=== PATIENT | female | born 1960 | race Caucasian/White ===

== ENCOUNTER 2019-10-30 08:07 | Outpatient (CLI) | payer OTHER, SELFPAY ==
--- NOTE | ~2019-10-30 | DEXA_ITS ---
Bone Density Report Name: Etelvina Gilmore Age: 59 Sex: Female Ethnicity: White Date of : 1960 Indication: postmenopausal; prior fracture; Referring Provider: ANGY RIVAS Study: Bone densitometry was performed. Exam Date: October 30, 2019 Accession number: [id number] Bone Density: Region BMD T-score Z-score Classification AP Spine (L1-L4) 0.832 -2.0 -0.7 Osteopenia Femoral Neck (Left) 0.647 -1.8 -0.6 Osteopenia Total Hip (Left) 0.779 -1.3 -0.5 Osteopenia Total Hip Bilateral Avg 0.774 -1.4 -0.6 Osteopenia Femoral Neck (Right) 0.622 -2.0 -0.9 Osteopenia Total Hip (Right) 0.768 -1.4 -0.6 Osteopenia World Health Organization criteria for BMD impression classify patients as: Normal (T-score at or above -1.0), Osteopenia (T-score between -1.0 and -2.5), or Osteoporosis (T-score at or below -2.5). 10-year Fracture Risk(1): Major Osteoporotic Fracture 15% Hip Fracture 2.0% Reported Risk Factors: [place] (), Neck BMD=0.622, BMI=29.7, previous fracture (1) FRAX(R) Version 3.08. Fracture probability calculated for an untreated patient. Fracture probability may be lower if the patient has received treatment. Clinical Information Provided by Patient: Has had a low trauma fracture Has used the following medications: Vitamin D, Calcium Patient maximum height was 61 Menopause Age: 53 Drinks caffeinated beverages Onset of menses at age 13 Number of children 2 Impression: The patient has low bone mass, based on the Total Spine T-score. The patient has an estimated ten-year risk of hip fracture of 2% and an estimated ten-year risk of major fracture of 15%, based on the WHO FRAX algorithm. The patient has risk factors, including: previous fracture. Discussion: BONE DENSITY IS LOW AT ONE OR MORE SKELETAL SITES. This patient's lowest T-score is low at one or more skeletal sites. It meets the World Health Organization's (WHO) criteria for ?low bone mass? (T-score between -1.0 and -2.5). The patient's 10-year risk of fracture as calculated by FRAX is less than the threshold where pharmacological therapy is recommended by the National Osteoporosis Foundation (NOF). However, all treatment decisions require clinical judgment and consideration of individual patient factors, including patient preferences, comorbidities, previous drug use, risk factors not captured in the FRAX model (e.g., frailty, falls, vitamin D deficiency, increased bone turnover, interval significant decline in bone density) and possible under or overestimation of fracture risk by FRAX. The patient should follow a healthful lifestyle (good nutrition with adequate calcium and vitamin D, and appropriate weight-bearing exercise). Follow-Up: Consider repeating this study in 2 to 3 years to reassess this patient's status, or sooner if there is some new
== END 2019-10-30 08:08 | disposition home or self-care (01) ==
DX: M81.0 Age-related osteoporosis without current pathological fracture (principal); M85.88 Other specified disorders of bone density and structure, other site; M85.852 Other specified disorders of bone density and structure, left thigh; M85.851 Other specified disorders of bone density and structure, right thigh
CPT/HCPCS: 77080

== ENCOUNTER 2022-08-27 00:46 | Day surgery (SDC) | payer OTHER, SELFPAY ==
[2022-08-17 13:37] VITALS: BMI 25.4
[2022-08-27 09:39] VITALS: BP 111/79; PULSE 80; RESP 16; TEMP 36.6; O2SAT 100
[2022-08-27] MEDS: LACTATED RINGERS 1,000 ML 150 ML IV CONT (09:50)
--- NOTE | 2022-08-27 09:58 | PM.HPGS ---
History of Present Illness History of Present Illness Consent: Risks, benefits, and alternatives have been discussed and questions answered. Patient agrees to proceed with procedure. Chief complaint: neoplasm screening Narrative: Etelvina Gilmore is a 61 year old female Referred for colon cancer screening. She has a family history of colon cancer, her father. Review of Systems Review of Systems: All systems reviewed & are unremarkable except as noted in HPI and below PMFSH Past Medical History Medical History Acute cystitis Anxiety disorder, unspecified Chronic foot pain Diarrhea Dysuria Essential hypertension Hypokalemia Hyponatremia Pharyngitis Surgical History Surgical History History of foot surgery History of hemorrhoidectomy History of laparoscopic cholecystectomy History of sinus surgery Family History Family History Father Carcinoma of colon, Onset Age: 51 Mother Family history of malignant neoplasm of breast in first degree relative Dementia Social History Social History Smoking packs per day: 0.5 Smoking cigarettes per day: 10.0 Years smoked: 10 Smoking pack-years: 5.00 Smoking status: Former smoker Tobacco type: cigarettes Second hand tobacco smoke exposure: Yes Smoking end date: 05/30/91 Alcohol intake: current Drinks per week: 6 Substance use: current Substance use type: marijuana Last use: Medical Living arrangements: with family Occupation/Education: occupation Additional occupation/education comments: [employer] Gender identity (if verbalized by the patient): Female Spiritual care concerns: No Meds Home Medications and Allergies Home Medications Medication Instructions Recorded Confirmed Type olmesartan 20 1 tablet PO DAILY #90 tabs 07/19/22 08/27/22 Rx mg-hydrochlorothiazide 12.5 mg tablet (Benicar HCT) lorazepam 0.5 mg tablet 0.5 mg PO TID PRN anxiety #60 tabs 08/09/22 08/27/22 Rx cholecalciferol (vitamin D3) 25 25 mcg PO DAILY 08/16/22 08/27/22 History mcg (1,000 unit) capsule nortriptyline 25 mg capsule 25 mg PO QHS 08/16/22 08/27/22 History vitamin B complex 1 tablet PO DAILY 08/16/22 08/27/22 History Allergies Allergy/AdvReac Type Severity Reaction Status Date / Time duloxetine AdvReac Intermediate Migraine Verified 08/27/22 09:37 Vital Signs Vital Signs - 24 hr 08/27/22 09:39 Temperature 36.6 C Pulse Rate 80 Respiratory Rate 16 Blood Pressure 111/79 Pulse Oximetry 100 Oxygen Delivery Room Air Exam Const: General: alert Orientation/consciousness: patient oriented x3 Resp: Auscultation: clear to auscultation bilaterally Cardio: Rhythm: regular rhythm GI: GI Palp: Yes Soft to palpation and No Tenderness to palpation present (GI) Neuro: General: patient oriented x3 Assessment and Plan Assessment and plan (1) Colon cancer screening: Code(s): Z12.11 - Encounter for screening for malignant neoplasm of colon Status: Acute Assessment and Plan: Colonoscopy with possible biopsy or polypectomy or cautery or injection of substances.
--- NOTE | 2022-08-27 10:18 | WPDANESEPPF ---
Anes - Initial Pre Proc Eval Procedure: Operation Date: 08/27/22 10:45 Proposed Procedures p Screening Colonoscopy - Sixto Carey MD Date/Time: 08/27/22 10:18 Surgeon: Sixto Carey MD Pre Op Diagnosis: neoplasm screening Patient Data Age: 61 Gender: F Height: 1.55 m Weight: 60.3 kg Last Vital Signs Temp 97.8 F 08/27/22 09:39 Pulse 80 08/27/22 09:39 Resp 16 08/27/22 09:39 BP 111/79 08/27/22 09:39 Pulse Ox 100 08/27/22 09:39 O2 Del Method Room Air 08/27/22 09:39 Allergies Allergy/AdvReac Type Severity Reaction Status Date / Time duloxetine AdvReac Intermediate Migraine Verified 08/27/22 09:37 Home Medications Medication Instructions Recorded Confirmed Type olmesartan 20 1 tablet PO DAILY #90 tabs 07/19/22 08/27/22 Rx mg-hydrochlorothiazide 12.5 mg tablet (Benicar HCT) lorazepam 0.5 mg tablet 0.5 mg PO TID PRN anxiety #60 tabs 08/09/22 08/27/22 Rx cholecalciferol (vitamin D3) 25 25 mcg PO DAILY 08/16/22 08/27/22 History mcg (1,000 unit) capsule nortriptyline 25 mg capsule 25 mg PO QHS 08/16/22 08/27/22 History vitamin B complex 1 tablet PO DAILY 08/16/22 08/27/22 History Patient hx anesthesia problems: none Family hx anesthesia problems: none Results Review: All pre-operative results and documents have been reviewed as part of the pre-operative evaluation. [facility] Past Medical History Medical History Acute cystitis Anxiety disorder, unspecified Chronic foot pain Diarrhea Dysuria Essential hypertension Hypokalemia Hyponatremia Pharyngitis Surgical History Surgical History History of foot surgery History of hemorrhoidectomy History of laparoscopic cholecystectomy History of sinus surgery Family History Family History Father Carcinoma of colon, Onset Age: 51 Mother Family history of malignant neoplasm of breast in first degree relative Dementia Social History Social History Smoking packs per day: 0.5 Smoking cigarettes per day: 10.0 Years smoked: 10 Smoking pack-years: 5.00 Smoking status: Former smoker Tobacco type: cigarettes Second hand tobacco smoke exposure: Yes Smoking end date: 05/30/91 Alcohol intake: current Drinks per week: 6 Substance use: current Substance use type: marijuana Last use: Medical Living arrangements: with family Occupation/Education: occupation Additional occupation/education comments: [employer] Gender identity (if verbalized by the patient): Female Spiritual care concerns: No Anes - Eval Final PreProcedure Day of Procedure 08/27/22 10:18 Patient weight: normal Heart: regular rate and rhythm Lungs: clear to auscultation Airway: Mallampati scale class II Neurological: alert and oriented Last oral intake: >/= 8 hours ASA classification: II Emergent: no Anesthetic plan: proceed Anesthesia type and monitoring: general GIVS and standard monitoring Results Review: All pre-operative results and documents have been reviewed as part of the pre-operative evaluation. Informed Consent: The patient's anesthetic plan and its attendant risks and benefits were discussed with the patient/family/POA. Questions were solicited and answers provided to the satisfaction of the patient/family/POA.
[2022-08-27 10:56] VITALS: BP 90/56; PULSE 81; RESP 30; O2SAT 100
[2022-08-27 11:06] VITALS: BP 109/71; PULSE 78; RESP 18; O2SAT 100
[2022-08-27 11:16] VITALS: BP 104/70; PULSE 74; RESP 18; O2SAT 100
== END 2022-08-27 11:29 | disposition home or self-care (01) ==
PROVIDERS: PCP Family Medicine; Visit Provider Internal Medicine Gastroenterology
PROC: 0DJD8ZZ Inspection of Lower Intestinal Tract, Via Natural or Artificial Opening Endoscopic (ICD-10-PCS; CPT 45378; principal; 2022-08-27 10:45)
DX: Z12.11 Encounter for screening for malignant neoplasm of colon (principal); K57.30 Diverticulosis of large intestine without perforation or abscess without bleeding; K64.8 Other hemorrhoids; Z80.0 Family history of malignant neoplasm of digestive organs; I10 Essential (primary) hypertension; F41.9 Anxiety disorder, unspecified; Z87.891 Personal history of nicotine dependence; F12.90 Cannabis use, unspecified, uncomplicated
CPT/HCPCS: 45378; J2704; J7120

== ENCOUNTER 2024-07-12 10:20 | Outpatient (CLI) | payer OTHER, SELFPAY ==
--- NOTE | ~2024-07-12 | DEXA_ITS ---
Bone Density Report Name: FADI CEBALLOS Age: 63 Sex: Female Ethnicity: White Date of : 1960 Indication: postmenopausal; screening for osteoporosis; prior fracture; Referring Provider: LOU GUERRA Study: Bone densitometry was performed. Exam Date: July 12, 2024 Accession number: [id number] Bone Density: Region BMD T-score Z-score Classification AP Spine(L1-L4) 0.780 -2.4 -0.8 Osteopenia Femoral Neck (Left) 0.608 -2.2 -0.8 Osteopenia Total Hip (Left) 0.756 -1.5 -0.4 Osteopenia Femoral Neck (Right) 0.599 -2.3 -0.8 Osteopenia Total Hip (Right) 0.692 -2.1 -0.9 Osteopenia Total Hip Mean 0.724 -1.8 -0.7 Osteopenia World Health Organization criteria for BMD impression classify patients as: Normal (T-score at or above -1.0), Osteopenia (T-score between -1.0 and -2.5), or Osteoporosis (T-score at or below -2.5). 10-year Fracture Risk(1): Major Osteoporotic Fracture 18% Hip Fracture 3.0% Reported Risk Factors: [place] (), Neck BMD=0.599, BMI=29.3, previous fracture (1) FRAX(R) Version 3.08. Fracture probability calculated for an untreated patient. Fracture probability may be lower if the patient has received treatment. Clinical Information Provided by Patient: Has had a low trauma fracture Has used the following medications: Prolia (i.e. denosumab), Vitamin D, Calcium Patient maximum height was 31 Menopause Age: 53 No regular weight bearing exercise Drinks caffeinated beverages Onset of menses at age 11 Number of children 2 Impression: The patient has low bone mass, based on the Total Spine T-score. The patient has an estimated ten-year risk of hip fracture of 3% and an estimated ten-year risk of major fracture of 18%, based on the WHO FRAX algorithm. The patient has risk factors, including: previous fracture. Discussion: BONE DENSITY IS LOW AT ONE OR MORE SKELETAL SITES. THE PATIENT'S BMD AND CLINICAL RISK FACTORS CONTRIBUTE TO THIS PATIENT'S INCREASED RISK OF FRACTURE. This patient's lowest T-score is low at one or more skeletal sites. It meets the World Health Organization's (WHO) criteria for ?low bone mass? (T-score between -1.0 and -2.5). The patient's 10-year risk of hip fracture as calculated by FRAX exceeds the threshold where pharmacological therapy is recommended by the National Osteoporosis Foundation (NOF). However, all treatment decisions require clinical judgment and consideration of individual patient factors, including patient preferences, comorbidities, previous drug use, risk factors not captured in the FRAX model (e.g., frailty, falls, vitamin D deficiency, increased bone turnover, interval significant decline in bone density) and possible under or overestimation of fracture risk by FRAX. The patient should follow a healthful lifestyle (good nutrition with adequate calcium and vitamin D, and appropriate weight-bearing exercise). Follow-Up: Consider a repeat BMD and Vertebral Fracture Assessment (VFA) exam in 2 years or sooner if medically necessary, to reassess this patient's status. Reported by: JANY on 07/12/2024 11:01:00 AM. Reviewed, dictated and finalized at location [facility]
--- NOTE | ~2024-07-12 | MM_ITS ---
EXAMINATION: MM screening adriana BI w horacio HISTORY: Screening TECHNIQUE: Craniocaudal and mediolateral oblique 3-D tomosynthesis images were obtained and synthetic 2-D images were generated. CAD analysis was submitted and interpreted. COMPARISON: No prior mammogram is available for comparison at this institution. BREAST PARENCHYMAL COMPOSITION: Not dense: There are scattered areas of fibroglandular density. FINDINGS: There is no evidence of suspicious mass, calcification, or architectural distortion to sugg est malignancy in either breast. There has been no suspicious interval change. IMPRESSION: 1. No mammographic evidence of malignancy. 2. Recommend routine screening mammography in one year. BI-RADS Category 1: Negative Reviewed, dictated and finalized at location B. BREAKING MACHINE OPERATOR
--- OUTSIDE RECORDS SUMMARY | 2024-07-12 10:39 | XMS_ITS | Referral Summary ---
Author Organization [facility] Address [address] [place] [address] Care Team Providers Care Daycare Manager Name Role Phone Jesica Koch MD, Carlos Rivera Primary Care Provider [phone] Allergies Active Allergy Reactions Criticality Noted Date Comments Prochlorperazine Unknown Medications olmesartan-hydr ochlorothiazide (BENICAR HCT) 20-12.5 mg per tablet take 1 tablet by oral route every day 90 3 2 Active cholecalciferol (VITAMIN D-3) 1,000 unit tablet Take 1,000 Units by mouth daily. Active amitriptyline (ELAVIL) 25 mg tablet Take 1 tablet (25 mg total) by mouth nightly as needed for sleep. 90 tablet 8 Active LORazepam (ATIVAN) 0.5 mg tabletIndicatio ns:anxiety Take 1 tablet (0.5 mg total) by mouth every 8 (eight) hours as needed for anxiety. 90 tablet 8 Active traMADol (ULTRAM) 50 mg tablet Take 1 tablet (50 mg total) by mouth every 6 (six) hours as needed for pain. 120 tablet 8 Active Lactobac no.41/Bifidobac t no.7 (PROBIOTIC-10 ORAL) Take by mouth. Activ e atorvastatin (LIPITOR) 20 mg tablet Take 1 tablet (20 mg total) by mouth daily. 30 tablet 8 Active gabapentin (NEURONTIN) 300 mg capsule Take 1 capsule in the afternoon and two capsules at HS. 90 capsule 2 8 Active denosumab (PROLIA) 60 mg/mL syringe Inject 1 mL (60 mg total) under the skin once for 1 dose. Repeat every 6 months. 1 mL 1 8 Active Active Problems Problem Noted Date Diagnosed Date Osteopenia 01/03/2018 Mixed hyperlipidemia 12/02/2017 Osteoporosis 06/03/2017 Assessment & Plan (11/13/2017 7:07 PM CDT): Prolia injections every 6 months. On Vitamin D supplements. Last DEXA was 07/2016 due to repeat 07/2018. Colitis 02/11/2017 Assessment & Plan (02/11/2017 11:32 AM CDT): This was noted on CT scan of the abdomen and pelvis that was performed in September 2016. The patient was apparently treated with a course of antibiotics. There was some improvement but the symptoms are persistent. There is no previous history of inflammatory bowel disease. She reported having had a colonoscopy in April 2016 at a private surgery center. I will request a repeat CT scan to see if the colonic wall thickening is persistent. Anxiety with depression 01/27/2017 Assessment & Plan (01/27/2017 8:25 AM CDT): Psychological condition is worsening. Feels it has been since grandson got into trouble a few months ago and the sudden loss of two friends suddenly. Medication changes per orders. Will add Pristiq 50mg daily. Addressed potential side effects. Psychological condition will be reassessed in 4 weeks. Asked to call in few weeks with update. Fibrocystic breast changes 12/11/2013 Overview (09/02/2016): FIBROCYSTIC BREAST DZ Iron deficiency anemia 10/13/2013 Overview (09/01/2016): IRON DEFIC ANEMIA NOS Multiple pulmonary nodules 10/13/2013 Overview (09/01/2016): PULMONARY NODULES Migraine 10/13/2013 Overview (09/03/2016): Migraines Insomnia 10/13/2013 Overview (09/03/2016): INSOMNIA NEC Assessment & Plan (11/13/2017 7:04 PM CDT): Well controlled with elavil 25 mg nightly. Irritable bowel syndrome 10/13/2013 Overview (09/03/2016): IBS (irritable bowel syndrome) Assessment & Plan (02/11/2017 11:33 AM CDT): Patient is currently taking amitriptyline. She was advised to continue the medication at this time. Hypertension 10/13/2013 Overview (09/03/2016): Hypertension Assessment & Plan (11/13/2017 7:03 PM CDT): Hypertension is well controlled. . Continue current treatment regimen. Blood pressure will be reassessed at the next regular appointment. Mass of breast 07/08/2009 Resolved Problems Problem Noted Date Diagnosed Date Resolved Date Well female exam with routin e gynecological exam 11/11/2017 12/02/2017 Assessment & Plan (11/13/2017 7:00 PM CDT): Pap smear done. Follow ACOG guidelines. RX for mammogram. Screening for malignant neoplasm of cervix 11/11/2017 12/02/2017 Assessment & Plan (11/13/2017 7:00 PM CDT): As above. Screening mammogram, encounter for 11/11/2017 12/02/2017 Assessment & Plan (11/13/2017 7:00 PM CDT): RX for rmammogram Other acute sinusitis 06/06/20172017 Assessment & Plan (06/06/2017 8:00 PM FORGE OPERATOR): Plan to start Amoxil 875 mg BID x 10 days. Continue with OTC agent such as Zyrtec D. Left upper quadrant pain 02/11/201710/2017 Assessment & Plan (02/11/2017 11:31 AM CDT): Differential diagnosis includes peptic ulcer disease, irritable bowel syndrome a papillary stenosis. The patient had ERCP with common bile duct and pancreatic duct stent placement in 2003. PLAN Will obtain CBC, CMP and amylase levels. EGD is recommended to exclude peptic ulcer disease. If liver function tests are high suggestive of papillary stenosis, repeat ERCP will be recommended. BMI 29.0-29.9,adult 01/27/2017 01/03/20 18 Assessment & Plan (11/13/2017 7:08 PM CDT): Obesity is worsening.Weight up 10 lbs. Discussed the patient's BMI. The BMI is above average; BMI management plan is completed. General weight loss/lifestyle modification strategies discussed (elicit support from others; identify saboteurs; non-food rewards, etc). Assessment & Plan (06/06/2017 8:01 PM FORGE OPERATOR): Weight is increased. Discussed the patient's BMI. The BMI is above average; BMI management plan is completed. General weight loss/lifestyle modification strategies discussed (elicit support from others; identify saboteurs; non-food rewards, etc). Assessment & Plan (01/27/2017 8:23 AM CDT): BMI WNL. Pt aware of importance of proper caloric intake. Abdominal discomfort 11/01/2016 018 Overview (11/01/2016): Reviewed CT scan and colonoscopy. Addressed concern of ongoing diarrhea with little improvement. Plan to start Levbid BID. Will refer to medical transcription radiology. Painful breathing 10/13/2013 12/02/2017 Overview (09/02/2016): PAINFUL RESPIRATION Pericarditis 10/13/2013 12/02/2017 Overview (09/02/2016): Pericarditis Pure hypercholesterolemia 10/13/2013 Overview (09/03/2016): PURE HYPERCHOLESTEROLEM Immunizations Name Administration Dates Next Due Tdap 09/28/2012 Social History Tobacco Use Types Packs/Day Years Used Date Smoking Tobacco: Former Cigarettes Smokeless Tobacco: Never Alcohol Use Standard Drinks/Week Comments Yes 0 (1 standard drink = 0.6 oz pur e alcohol) 3-4 beers per week. Personal Safety Answer Date Recorded Getting School Help Needed Not on file 08/12 Comments No Sex and Gender Information Value Date Recorded Sex Assigned at Not on file Legal Sex Female 7:58 PM FORGE OPERATOR Gender Identity Not on file Sexual Orientation Not on file Last Filed Vital Signs Vital Sign Reading Time Taken Comments Blood Pressure 134/88 01/03/2018 7:45 AM CDT Pulse 76 01/03/2018 7:45 AM CDT Temperature 36.4 C (97.6 F) 01/03/2018 7:45 AM CDT Respiratory Rate 12 02/11/2017 10:40 AM CDT Oxygen Saturation 99% 01/03/2018 7:45 AM CDT Inhaled Oxygen Concentration - - Weight 72.6 kg (160 lb) 01/03/2018 7:45 AM CDT Height 157.5 cm (5' 2 ) 01/03/2018 7:45 AM CDT Body Mass Index 29.26 01/03/2018 7:45 AM CDT Plan of Treatment Not on file Insurance AET SIG [id number] [employer] OPEN ACCESS Care Teams Daycare Manager Relationship Specialty Start Date End Date Carlos Mooney Jr., MD [address] [place] [address] PCP - General 09/24/20
--- OUTSIDE RECORDS SUMMARY | 2024-07-12 10:39 | XMS_ITS | Encounter Summary ---
Author Organization [facility] Address [address] [place] [address] Care Team Providers Care Application Helper Name Role Phone Alice Jefferson NP Primary Care Provider [phone] Encounter Details Date Type Department Care Team (Late st Contact Info) Description 03/02/2006 Outpatient Historical [facility] Social History Tobacco Use Types Packs/Day Years Used Date Smoking Tobacco: Never Assessed Comments Unknown Sex and Gender Information Value Date Recorded Sex Assigned at Not on file Legal Sex Female 4:40 AM ECOMMERCE ANALYST Gender Identity Not on file Sexual Orientation Not on file documented as of this encounter Plan of Treatment Not on file documented as of this encounter Visit Diagnoses Not on filedocumented in this encounter Care Teams Application Helper Relationship Specialty [place] [address] [facility] [address] [place] [id number] PCP - General 06/28/13 documented as of this encounter
--- OUTSIDE RECORDS SUMMARY | 2024-07-12 10:39 | XMS_ITS | Clinical Summary ---
Author Organization [facility] Address [address] [place] [address] Care Team Providers Care Quality Inspector Name Role Phone Jesica Koch MD, Carlos Rivera Primary Care Provider [phone] Allergies Active Allergy Reactions Criticality Noted Date [...] 06/06/20172017 Assessment & Plan (06/06/2017 8:00 PM VP SECURITY): Plan to start Amoxil 875 mg BID [...] etc). Assessment & Plan (06/06/2017 8:01 PM VP SECURITY): Weight is increased. Discussed the patient's BMI. [...] to start Levbid BID. Will refer to vp talent management. Painful breathing 10/13/2013 12/02/2017 Overview (09/02/2016): PAINFUL RESPIRATION Pericarditis 10/13/2013 12/02/2017 Overview (09/02/2016): Pericarditis Pure hypercholesterolemia 10/13/2013 Overview (09/03/2016): PURE HYPERCHOLESTEROLEM Immunizations Name Administration Dates Next Due Tdap 09/28/2012 Surgical History Surgery Date Site/Laterality Comments CHOLECYSTECTOMY 05/30/2002 - 05/29/2003 Cholecystectomy TUBAL LIGATION Bilateral tubal ligation SINUS SURGERY 05/30/2002 - 05/29/2003 ERCP ERCP: Dr Grant COLPOSCOPY Abnormal pap [id number] (positive HPV): colposcopy with biopsy-negative (12/12/10) ENDOMETRIAL ABLATION W/ NOVASURE Ablation-NovaSure (D&C with Hysteroscopy): Dr. Christian Mcbride Medical History Medical History Date Comments Hypertension Gastroesophageal reflux disease Inflammatory arthritis Pericarditis 2010 Abnormal Papanicolaou smear of cervix with positive human papilloma virus (HPV) test 2010 Abnormal pap [id number] (positive HPV): colposcopy with biopsy-negative (12/12/10) Migraine IBS (irritable bowel syndrome) Iron deficiency anemia 10/13/2013 Multiple pulmonary nodules Anxiety with depression Mixed hyperlipidemia Osteoporosis Colitis Family History Medical History Relation Name Comments Colon cancer Father Colon polyps Father Hypertension Father Breast cancer Mother Hypertension Other 1 Family history of Hypertension; Coronary artery disease Other 2 Fami ly history of Coronary artery disease; Diabetes type II Other 3 Family hist ory of Diabetes -Type II; Stroke Other 4 Family history of Stroke; Fibromyalgia Sister 2 Relation Name Status Comments Father Mother Alive Other 1 Other 2 Other 3 Other 4 Sister 1 Alive Sister 2 Social History Tobacco Use Types Packs/Day Years [...] on file Legal Sex Female 7:58 PM VP SECURITY Gender Identity Not on file Sexual Orientation Not on file Obstetrics History Para Term AB IAB SAB Ectopic Multiple Livin g Live Births 3 2 1 1 Date Outcome GA Total Labor Labor/2nd/3rd Weight Sex Type Anes PTL Janett A1 A5 Name Clin Para Para Ectopic Last Filed Vital Signs Vital Sign Reading [...] Plan of Treatment Not on file Insurance AETNA SIG [id number] [employer] OPEN ACCESS Care Teams Quality Inspector Relationship Specialty Start Date End Date Carlos Mooney Jr., MD [address] [place] [address] PCP - General 09/24/20
--- OUTSIDE RECORDS SUMMARY | 2024-07-12 10:39 | XMS_ITS | Clinical Summary ---
Author Organization [facility] Address [address] [place] [address] Care Team Providers Care Scagliola Mechanic Name Role Phone Jesica Koch MD, Carlos Gage Primary Care Provider [phone] Ever Chandler MD Unavailable [phone] Source Comments [facility],non-owned Affiliates and Associated Physician Practices is amultiple site organization consisting of ambulatory clinics and hospital sitesin [place], [place], [place] and [place]. This disclosure is being madepursuant to the Care Everywhere program and may not contain all information available regarding this patient. Last updated 18.[facility] Allergies Active Allergy Reactions Criticality Noted Date Comments Prochlorperazine Unknown 06/04/2019 Medications * Be aware that medications may not be up to date on this document. Alwaysverify current medications with the patient. Medication Sig Dispensed Refills Start Date End Date Status traMADol (ULTRAM) 50 MG tablet TAKE 2 TABLETS BY MOUTH ONCE EVERY 8 HOURS NEEDED 05/18/2019 Active LORazepam (ATIVAN) 0.5 MG tablet Take 0.5 mg by mouth 3 times daily as needed 05/08/2019 Active ibuprofen (MOTRIN) 600 MG tablet Take 600 mg by mouth every 8 hours as needed For pain. 05/28/2019 Active olmesartan-hydroCHLORO thiazide (BENICAR HCT) 20-12.5 MG tablet Take 1 tablet by mouth every 24 hours 11/25/2011 Active Social History Tobacco Use Types Packs/Day Years Used Date Smoking Tobacco: Never Assessed Sex and Gender Information Value Date Recorded Sex Assigned at Not on file Gender Identity Not on file Sexual Orientation Not on file Plan of Treatment Health Maintenance Due Date Last Done Comments COLOGUARD (AGES 45-75) - COL ON CA SCREENING 1961 COLON MONITORING 1961 COLONOSCOPY - COLON CA SCREENING 1961 CT COLONOGRAPHY - COLON CA SCREENING 1960 Colorectal Cancer Screening 1960 FIT - COLON CA SCREENING 1961 FLEX SIG - COLON CA SCREENING 1961 LIPID TESTING 1960 MAMMOGRAM 1960 PAP SMEAR 1961 HIV SCREENING 1976 HEPATITIS C SCREENING 08/27/1979 DTAP/TDAP/TD VACCINES (1 - Tdap) 1980 PNEUMOCOCCAL VACCINE 50+ (1 of 1 - PCV) 09/01/2011 ZOSTER VACCINE (1 of 2) 09/01/2011 COVID-19 VACCINE ( - 2023-2 5 season) 2024 INFLUENZA VACCINE (#1) 2024 DEPRESSION SCREENING 05/30/2024 Respiratory Syncytial Virus (RSV) Vaccine Pt: or over 60 yrs (1 - 1-dose 75+ series) 2036 HEPATITIS B VACCINE Aged Out No longe r eligible based on patient's age to complete this topic HIB VACCINE Aged Out No longer eligi ble based on patient's age to complete this topic HPV VACCINE Aged Out No longer eligi ble based on patient's age to complete this topic MENINGOCOCCAL (Group B) VACCINE Aged Out No longer eligible based on patient's age to complete this topic MENINGOCOCCAL VACCINE Aged Out No giovanna linda eligible based on patient's age to complete this topic PNEUMOCOCCAL VACCINE Aged Out No long er eligible based on patient's age to complete this topic Care Teams Scagliola Mechanic Relationship Specialty Start Date End Date Carlos Mooney Jr., MD [address] [place] [address] PCP - General Internal Medicine 05/16/19 [place] [id number] [id number] Orthopedic Surgery 06/04/19
--- OUTSIDE RECORDS SUMMARY | 2024-07-12 10:39 | XMS_ITS | Encounter Summary ---
Author Organization [facility] Address 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
--- OUTSIDE RECORDS SUMMARY | 2024-07-12 10:39 | XMS_ITS | Encounter Summary ---
Author Organization [facility] Address 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 Gender Identity Not on file Sexual Orientation Not on file documented as of this encounter Plan of Treatment Not on file documented as of this encounter Procedures Procedure Name Priority Date/Time Associated Diagnosis Comments MAMMO SCREENING BILAT Routine 02/28/2008 5:00 PM CDT documented in this encounter Results * MAMMO SCREENING BILAT (02/28/2008 5:00 PM CDT) Anatomical Region Laterality Modality Breast Bilateral Other 02/28/2008 5:00 PM CDT Narrative 03/04/2008 10:48 AM CDT [id number] [place], [place] [address] Admit Date: 02/28/2008 ETELVINA CEBALLOS Sex: F Admit Prov: Date: 1960 Primary Care Prov: PCP, UNKNOWN CMRN: [id number] Room: [facility] SSN: [id number] IMAGING SERVICES Ordering Prov: MADISON WASHINGTON Accession Number: [id number] Interpretation BILATERAL SCREENING MAMMOGRAM. Date: 02/28/2008 History: Routine Screening. Technique: Craniocaudal and mediolateral oblique projections of both breasts were obtained. Comparison: 02/2006 Breast Parenchymal Composition: Heterogeneously dense, which lowers the sensitivity of mammography. Findings: No suspicious mass, suspicious microcalcifications, or architectural distortion in either breast is identified. Since the prior study, there has been no significant interval change. Overall Assessment: BI-RADS category 1: Negative. Recommendation: Annual mammography is recommended. Assessment BIRADS: 1-Negative Recommendation: Normal interval follow-up Dictated by: ROCÍO MENESES Electronically signed by: ROCÍO MENESES 03/04/2008 10:48 Transcribed: 03/04/2008 10:47 DKT Procedure Note Rocío Meneses - 03/04/[address] [address] Admit Date: 02/28/2008 ETELVINA CEBALLOS Sex: F Admit Prov: Date: 1960 Primary Care Prov: PCP, UNKNOWN CMRN: [id number] Room: [facility] SSN: [id number] IMAGING SERVICES Ordering Prov: GeovanniGeovanni [place] Interpretation BILATERAL SCREENING MAMMOGRAM. Date: 02/28/2008 History: Routine Screening. Technique: Craniocaudal and mediolateral oblique projections ofboth breasts were obtained. Comparison: 02/2006 Breast Parenchymal Composition: Heterogeneously dense, which lowersthe sensitivity of mammography. Findings: No suspicious mass, suspicious microcalcifications, or architectural distortion in either breast is identified. Since theprior study, there has been no significant interval change. Overall Assessment: BI-RADS category 1: Negative. Recommendation: Annual mammography is recommended. Assessment BIRADS: 1-Negative Recommendation: Normal interval follow-up Dictated by: ROCÍO MENESES Electronically signed by: ROCÍO MENESES 03/04/2008 10:48 Transcribed: 03/04/2008 10:47 DKT [employer] MAMMO ORDERABLES Final Result documented in this encounter Visit Diagnoses Diagnosis Other screening mammogram documented in this encounter Care Teams Video Game Producer Relationship Specialty [place] [address] [address] PCP - General 06/28/13 documented as of this encounter
--- OUTSIDE RECORDS SUMMARY | 2024-07-12 10:39 | XMS_ITS | Clinical Summary ---
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 Gender Identity Not on file Sexual Orientation Not on file Occupation Industry Job Start Date Job End Date Not on file Not on file Not on file Not on file Plan of Treatment Health Maintenance Due Date Last Done Comments CERVICAL CANCER SCREENING 09/01/1991 COLORECTAL SCREENING 2006 Colorectal Cancer Screening 2006 FIT-DNA Q 3 years 2006 FIT/FOBT Q 1 year 2006 Flex Sig/CT Colonography Q 5 years 2006 ZOSTER VACCINE (1 of 2) 09/01/2011 BREAST CANCER SCREENING 2019 08/31/19 19, 2017, 08/04/2016, Additional history exists DTAP/TDAP/TD VACCINES (2 - Td or Tdap) 09/28/2022 09/28/2012 INFLUENZA VACCINE (#1) 2023 RSV VACCINE (60+ or ) (1 - 1-dose 75+ series) 2036 PNEUMOCOCCAL VACCINE 0-64 YEARS Aged Out No longer eligible based on patient's age to complete this topic Procedures Procedure Name Priority Date/Time Associated Diagnosis Comments MAMMO SCREEN BILAT W OR WO CAD Routine 08/30/2018 8:54 AM CDT Visit for screening mammogram from Last 3 Months or Most Recently Relevant to Health Maintenance Results * MAMMO SCREEN BILAT W OR WO CAD (08/30/2018 8:54 AM CDT) Anatomical Region Laterality Modality Breast Bilateral Mammography 08/30/2018 8:54 AM CDT Impressions 2018 1:58 PM CDT IMPRESSION: 1. No concerning findings. OVERALL ASSESSMENT: BI-RADS Category 1 - Negative. RECOMMENDATIONS: 1. Recommend annual mammography. Narrative 2018 1:58 PM CDT BILATERAL SCREENING DIGITAL MAMMOGRAM WITH CAD DATE: 08/30/2018 8:54 AM DICTATION LOCATION: [facility] HISTORY: Routine yearly screening exam. TECHNIQUE: Standard images of both breasts were obtained on a digital system. CAD was utilized. COMPARISON: Studies dating back to 06/20/2013. BREAST COMPOSITION: Scattered fibroglandular densities. FINDINGS: No concerning dominant masses, suspicious calcifications, parenchymal asymmetries or areas of architectural distortion are identified in either breast. Procedure Note Arnie Urbina MD - 2018 BILATERAL SCREENING DIGITAL MAMMOGRAM WITH CAD DATE: 08/30/2018 8:54 AM DICTATION LOCATION: [facility] HISTORY: Routine yearly screening exam. TECHNIQUE: Standard images of both breasts were obtained on a digital system. CAD was utilized. COMPARISON: Studies dating back to 06/20/2013. BREAST COMPOSITION: Scattered fibroglandular densities. FINDINGS: No concerning dominant masses, suspicious calcifications, parenchymal asymmetries or areas of architectural distortion are identified in either breast. IMPRESSION: 1. No concerning findings. OVERALL ASSESSMENT: BI-RADS Category 1 - Negative. RECOMMENDATIONS: 1. Recommend annual mammography. [facility] [employer] MAMMO ORDERABLES Final Result from Last 3 Months or Most Recently Relevant to Health Maintenance Care Teams Petroleum Refinery Operator Relationship Specialty [place] [address] [address] [facility] - General 06/28/13
--- OUTSIDE RECORDS SUMMARY | 2024-07-12 10:39 | XMS_ITS | Referral Summary ---
Author Organization [facility] Address [address] [address] Care Team Providers Care Intellectual Property Legal Assistant Name Role Phone Jesica Koch MD, Carlos Gage Primary Care Provider [phone] Ever Chandler MD Unavailable [phone] Source Comments [facility],non-owned Affiliates and Associated Physician Practices is amultiple site organization consisting of ambulatory clinics and hospital sitesin [place], [place], [place] and [place]. This disclosure is being madepursuant to the Care Everywhere program and may not contain all information available regarding this patient. Last updated 18.[facility] Allergies Active Allergy Reactions Criticality Noted Date [...] Orientation Not on file Plan of Treatment Not on file Care Teams Intellectual Property Legal Assistant Relationship Specialty Start Date End Date Carlos Mooney Jr., MD [address] [place] [address] PCP - General Internal Medicine 05/16/19 [place] [address] [address] Orthopedic Surgery 06/04/19
--- OUTSIDE RECORDS SUMMARY | 2024-07-12 10:39 | XMS_ITS | Encounter Summary ---
Author Organization [facility] Address [address] [place] [address] Care Team Providers Care Bobbin Dumper Name Role Phone Alice Jefferson NP Primary Care Provider Encounter Details Date Type Department Care Team (Late st Contact Info) Description 03/01/2007 Outpatient Historical HIS MAMM [facility] Social History Tobacco Use Types Packs/Day Years Used Date Smoking Tobacco: Never Assessed Comments Unknown Sex and Gender Information Value Date Recorded Sex Assigned at Not on file Legal Sex Female 4:40 AM [employer] [facility] Gender Identity Not on file Sexual Orientation Not on file documented as of this encounter Plan of Treatment Not on file documented as of this encounter Visit Diagnoses Not on filedocumented in this encounter Care Teams Bobbin Dumper Relationship Specialty [place] [address] [address] [facility] [address] [place] [address] PCP - General 06/28/13 documented as of this encounter
--- OUTSIDE RECORDS SUMMARY | 2024-07-12 10:39 | XMS_ITS | Encounter Summary ---
Author Organization [facility] Address [address] [place] [address] Care Team Providers Care Data Sme Name Role Phone Alice Jefferson NP Primary Care Provider Encounter Details Date Type Department Care Team (Late st Contact Info) Description 03/08/2007 Outpatient Historical HIS [facility] Christian Tejeda MD [address] [facility] [address] [place] [address] Abnormal Mammogram, Unspecified (Primary Dx) Social History Tobacco Use Types Packs/Day Years Used Date Smoking Tobacco: Never Assessed Comments Unknown Sex and Gender Information Value Date Recorded Sex Assigned at Not on file 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
--- OUTSIDE RECORDS SUMMARY | 2024-07-12 10:39 | XMS_ITS | Patient Health Summary ---
Author Organization [facility] Address [address] [facility] [place] [address] Care Team Providers Care Financial Services Director Name Role Phone Jesica Koch MD, Carlos Gage Primary Care Provider [phone] Ever Chandler MD Unavailable [phone] Note from [facility],non-owned Affiliates and Associated Physician Practices is amultiple site organization consisting of ambulatory clinics and hospital sitesin [place], [place], [place] and [place]. This disclosure is being madepursuant to the Care Everywhere program and may not contain all information available regarding this patient. Last updated 18.[facility] Allergies * Prochlorperazine(Unknown) Medications * Be aware that medications may not be up to date on this document. Alwaysverify current medications with the patient. * traMADol (ULTRAM) 50 MG tablet(Started 05/18/2019) TAKE 2 TABLETS BY MOUTH ONCE EVERY 8 HOURS NEEDED * LORazepam (ATIVAN) 0.5 MG tablet(Started 05/08/2019) Take 0.5 mg by mouth 3 times daily as needed * ibuprofen (MOTRIN) 600 MG tablet(Started 05/28/2019) Take 600 mg by mouth every 8 hours as needed For pain. * olmesartan-hydroCHLOROthiazide (BENICAR HCT) 20-12.5 MG tablet(Started 11/25/2011) Take 1 tablet by mouth every 24 hours Social History Tobacco Use Types Packs/Day Years Used Date Smoking Tobacco: Never Assessed Sex and Gender Information Value Date Recorded Sex Assigned at Not on file Gender Identity Not on file Sexual Orientation Not on file Procedures * XR KNEE RIGHT 4VW OR MORE(Performed 06/04/2019) Performed for Chronic pain of right knee * MRI KNEE RIGHT WO CONTRAST(Performed 05/16/2019) Performed for Right knee pain, unspecified chronicity Results * XR KNEE RIGHT 4VW OR MORE (06/04/2019 8:59 AM DOG GROOMER) Anatomical Region Laterality Modality Lower Extremity Computed Radiogr aphy Narrative 06/04/2019 9:00 AM DOG GROOMER Radha Harry, RT(R) 06/04/2019 12:52 PM See progress notes for results Ever Chandler MD DIAGNOSTIC IMAGING O RDERABLES * MRI KNEE WO CONT RIGHT (05/16/2019 4:00 PM DOG GROOMER) Anatomical Region Laterality Modality Lower Extremity Magnetic Resonan ce 05/16/2019 4:59 PM DOG GROOMER Impressions 05/16/2019 5:03 PM DOG GROOMER Cartilage thinning with subchondral marrow edema in the medial femoral tibial compartment. Findings most suggestive of sequela the acute sequela of medial femoral tibial compartment osteoarthrosis possibly with an adjacent medial femoral condyle bone contusion given the adjacent chondral edema Reading Radiologist: Salvatore Day MD on 05/16/2019 at 5:03 PM Narrative 05/16/2019 5:03 PM DOG GROOMER MRI Right Knee Without Contrast INDICATION: 58-year-old female with generalized knee pain TECHNIQUE: Multisequence, multiplanar MRI sequences of the knee without contrast FINDINGS: The lateral meniscus is intact. The medial meniscus is intact. Both the anterior posterior cruciate ligaments are normal. There is a small knee joint effusion. Tiny suprapatellar intra-articular loose body laterally. There is marrow edema to the weightbearing surface of the medial femoral condyle. Cartilage thinning and chondral edema weightbearing surface medial femoral condyle. No associated fracture line is seen to parallel the condylar surface No loss of the medial meniscal hoop strength. The quadriceps and patellar tendons are intact. The patellar hyalin surface cartilage thickness is adequately preserved. Residual red marrow results in a speckled marrow signal intensity in the proximal tibia. Procedure Note Salvatore Day MD - 05/16/2019 MRI Right Knee Without Contrast INDICATION: 58-year-old female with generalized knee pain TECHNIQUE: Multisequence, multiplanar MRI sequences of the knee without contrast FINDINGS: The lateral meniscus is intact. The medial meniscus is intact. Both the anterior posterior cruciate ligaments are normal. There is a small knee joint effusion. Tiny suprapatellar intra-articular loose body laterally. There is marrow edema to the weightbearing surface of the medial femoral condyle. Cartilage thinning and chondral edema weightbearing surface medial femoral condyle. No associated fracture line is seen to parallel the condylar surface No loss of the medial meniscal hoop strength. The quadriceps and patellar tendons are intact. The patellar hyalin surface cartilage thickness is adequately preserved. Residual red marrow results in a speckled marrow signal intensity in the proximal tibia. IMPRESSION Cartilage thinning with subchondral marrow edema in the medial femoral tibial compartment. Findings most suggestive of sequela the acute sequela of medial femoral tibial compartment osteoarthrosis possibly with an adjacent medial femoral condyle bone contusion given the adjacent chondral edema Reading Radiologist: Salvatore Day MD on 05/16/2019 at 5:03 PM Carlos Mooney Jr., MD MR ORDERABLES Care Teams Financial Services Director Relationship Specialty Start Date End Date Carlos Mooney Jr., MD [address] [place] [address] PCP - General Internal Medicine 05/16/19 [place] [address] [address] Orthopedic Surgery 06/04/19
--- OUTSIDE RECORDS SUMMARY | 2024-07-12 10:39 | XMS_ITS | Continuity of Care Document ---
Author Organization [facility] Address [address] [place] [address] Phone Care Team Providers Care In Shop Service Technician Name Role Phone Jean Smiley MD Unavailable Unavailable Allergies, Adverse Reactions, Alerts Substance Reaction Status Criticality No Known Allergies Active No Inform ation Medications Medication Instructions Dosage Effective Dates (start - stop) Status Comments amitriptyline 25 mg tablet take 1 tablet by oral route every day at bedtime 25 MG - Active Ativan 0.5 mg tablet take 1 tablet by oral route 3 times every day as needed 0.5 MG - Active Benicar HCT 20 mg-12.5 mg tablet take 1 tablet by oral route every day 1.00 tablet - Active VITAMIN D3 (unknown strength) take 1 capsule by oral route every day Not Available - Active TRAMADOL HCL (unknown strength) take 1 tablet by oral route every 6 hours as needed Not Available - Active Prolia 60 mg/mL subcutaneous syringe inject 1 milliliter by subcutaneous route every 6 months in the upper arm, upper thigh or abdomen 60 MG - Active Advance Directives Directive Yes / No Effective Date File Name No Information Encounters Encounter Description Practice Location Reason(s) For Visit Diagnoses Date Provider Providers Copied on Encounter [facility], [address], [place], [place], [id number] , [place] tel: [phone] [facility] Irritable bowel syndrome with diarrheaEpigastric abdominal pain [address], [address], [place], [address], [place]. tel: [phone] Referring Provider: Khushboo Ballesteros, [address] [address] [facility], [place], [address]. tel:[phone] Family History Family Member Type Diagnosis Age At Onset No Information Payers Payer name Insurance type Covered libertarian ID Alesha sousa(s) CMR GHP ASO CI [id number] Social History Type Description Quantity Date Captured Comments Alcohol Use Details Unknown Caffeine Use Details Unknown Tobacco Use Status No Information Smoking Status Former smoker Sex Female Vital Signs Date / Time: Height Weight BMI Pulse Rate Blood Pressure Temperature Respiratory Rate Body Surface Area Head Circumference Head Circ. Percentile Wt./Roberto. Percentile BMI percentile Pulse Ox Inhaled Ox 11:31 AM 61.50 in 63.049 kg (139.00 lbs) 25.8 4 kg/m eter (2) 88 /min 114/68 mm[Hg] 18 /min Chief Complaint And Reason For Visit No Information Reason For Referral Reason For Referral No Information History Of Present Illness Encounter Date Complaint History Of Prese nt Illness No Information Functional Status Date Functional Assessmen t No Information Medications Administered Medication Instructions Dosage Effective Dates (start - stop) Status Comments No Drug Therapy Prescribed Instructions Date Instruction Additional Infor mation No Information Assessments Type Assessment Date No Information Patient Care Teams Name Effective Dates (start - stop) Status Members No Information
== END 2024-07-12 10:21 | disposition home or self-care (01) ==
PROVIDERS: PCP Family Medicine; Visit Provider Physician Assistant Medical
DX: Z12.31 Encounter for screening mammogram for malignant neoplasm of breast (principal); M85.89 Other specified disorders of bone density and structure, multiple sites; M81.0 Age-related osteoporosis without current pathological fracture; Z80.3 Family history of malignant neoplasm of breast
CPT/HCPCS: 77063; 77067; 77080

== ENCOUNTER 2025-05-22 10:24 | Emergency (ER) | payer OTHER, SELFPAY ==
--- NOTE | 2025-05-22 10:26 | ED_ITS ---
HPI - URI/Sore Throat General Chief Complaint: Upper Respiratory Infection Stated Complaint: headache, Sinus issues, vomiting Time Seen by Provider: 05/22/25 10:55 Source: patient, RN notes reviewed and old records reviewed Mode of arrival: ambulatory Limitations: no limitations History of Present Illness HPI Narrative: 64-year-old female presents to the [facility] with concerns concerns of sinus congestion, nausea, headache, body aches. Symptoms started yesterday morning. No treatment prior to arrival. Related Data Home Medications ?Medication ?Instructions ?Recorded ?Confirmed ?Last Taken ?Type cholecalciferol (vitamin D3) 25 25 mcg PO DAILY 04/10/25 08/26/22 History mcg (1,000 unit) capsule Allergies Allergy/AdvReac Type Severity Reaction Status Date / Time duloxetine AdvReac Intermediate Migraine Verified 05/22/25 10:34 alendronate sodium (From AdvReac Mild joint pain Verified 05/22/25 10:34 Fosamax) Review of Systems Review of Systems: All systems reviewed & are unremarkable except as noted in HPI and below Constitutional: Constitutional: Reports as per HPI, Reports body ache(s) and Reports headache(s) ENT: Reports as per HPI Cardiovascular: Cardiovascular: Reports no additional cardiovascular complaints, Denies chest pain and Denies dyspnea Respiratory: Respiratory: Reports no additional respiratory complaints, Denies chest congestion, Denies cough and Denies dyspnea Gastrointestinal: Gastrointestinal: Reports as per HPI Musculoskeletal: Musculoskeletal: Reports no additional musculoskeletal complaints Integumentary/Breasts: Skin/Breast: Reports system reviewed and no additional complaints, except as docu PMFSH Past Medical History Medical History Mood disorder BMI 27.0-27.9,adult Hyponatremia Acute cystitis Dysuria Hypokalemia Diarrhea Anxiety disorder, unspecified Pharyngitis Chronic foot pain Essential hypertension Surgical History Surgical History History of foot surgery History of laparoscopic cholecystectomy History of hemorrhoidectomy History of sinus surgery Family History Family History Father Carcinoma of colon, Onset Age: 51 Mother Family history of malignant neoplasm of breast in first degree relative Dementia Breast cancer Sibling Breast cancer bilateral mastectomy Social History Social History Smoking packs per day: 0.5 Smoking cigarettes per day: 10.0 Years smoked: 10 Smoking pack-years: 5.00 Smoking status: Current some day smoker Tobacco type: e-cigarettes/vaping Second hand tobacco smoke exposure: Yes Smoking end date: 05/30/91 Alcohol intake: current Drinks per week: 6 Substance use: current Substance use type: marijuana Last use: Medical Lack of Transportation: No Lack of Food: Never True Current Housing: I Have Housing Concerned About Future Housing: No Difficulty Paying Gas/Electric Bills: No Difficulty Paying for Meds: No Currently Unemployed: No Education: High School Diploma/GED Difficulty w/ Childcare or Family Care: No Living arrangements: with family Occupation/Education: retired 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 There is no relevant family history pertinent to the patient complaint. Exam Const: General: cooperative, no acute distress, well developed, alert, tired appearing, uncomfortable and well nourished Nutritional Appearance: well nourished Orientation/consciousness: patient oriented x3 Limitations: no limitations HENMT: Head: normal to inspection Ears: hearing grossly normal bilaterally, external ears normal, TM's normal bilaterally, EAC's normal, mastoids normal and no periauricular adenopathy Mouth: Yes Normal oral and palatal mucosa present, Yes lip normal, Yes tongue normal and Yes moist mucous membranes Throat: posterior oropharynx normal, uvula midline and no uvular edema Eyes: General: appearance normal, both eyes and all related structures Alignment and Position: alignment normal Neck: Neck: normal visual inspection, full ROM, no lymphadenopathy and no meningeal signs Chest: Chest palpation & inspection: normal inspection of the chest Resp: Effort & Inspection: normal respiratory effort and able to speak in complete sentences Auscultation: clear to auscultation bilaterally, no crackles, no rales, no rhonchi and no wheezes Cardio: Rate: regular rate Skin: General skin exam: normal color and no rashes or lesions noted Neuro: General: patient oriented x3, gait normal, moves all extremities and no meningeal signs Cognition (Neuro): normal cognition Speech: normal speech Gait exam (Neuro): Normal gait present Extrem: General: normal to inspection, full ROM, capillary refill normal and normal gait Psych: Appearance: grossly normal and well kempt Mental Status: mental status grossly normal Speech and movement: Normal speech and movement present and Clear speech present Affect: normal affect Attitude: cooperative Course Course Level of Care: Express Care Visit Vital Signs Vital signs: Vital Signs Temperature 97.6 F 05/22/25 10:44 Pulse Rate 85 05/22/25 10:44 Respiratory Rate 16 05/22/25 10:44 Blood Pressure 146/101 H 05/22/25 10:44 Pulse Oximetry 99 05/22/25 10:44 Oxygen Delivery Room Air 05/22/25 10:44 Temperature 97.6 F 05/22/25 10:44 Pulse Rate 85 05/22/25 10:44 Respiratory Rate 16 05/22/25 10:44 Blood Pressure 146/101 H 05/22/25 10:44 Pulse Oximetry 99 05/22/25 10:44 Oxygen Delivery Room Air 05/22/25 10:44 reviewed MDM MDM Narrative Medical decision making narrative: Patient sitting in exam room. Patient is nontoxic, vitals stable. Patient p resents with 1 day history of URI symptoms. Patient is COVID positive. Patient is appropriate for outpatient treatment with strict signs and symptoms to proceed to the emergency room which she and her significant other verbalized understanding. Discharge instructions reviewed with patient, as well as provided in writing per nursing staff. The instructions also include specific and strict return/GO TO THE ER as well as f/u information. All questions have been answered, and the patient deny any further questions with discharge and discharge plan. Some parts of this dictation were generated by voice recognition software and may contain typographical and/or grammatical inaccuracies. Differential Diagnosis Differential Diagnosis: Differential diagnostic considerations for upper respiratory infection include upper respiratory infection, croup, otitis media, sinusitis, viral infection, bronchitis, influenza, pharyngitis, strep, uvulitis.? Lab Data Labs: Lab Results 05/22/25 Range/Units 11:07 POC Influenza A Ag Negative (Negative) POC Influenza B Ag Negative (Negative) POC SARS CoV-2 Ag Positive (Negative) Reviewed Discharge Plan Discharge Clinical Impression: COVID-19 Patient Disposition: Home Condition: Stable Instructions: COVID-19 (Coronavirus Disease 2019) (ED), COVID-19 and Chronic Health Conditions (ED) Additional Instructions: Your rapid COVID test was positive for COVID-19 Your rapid flu test was negative Your symptoms are due to a viral illness, which is not treated with antibiotics. Typically viral infections last 7-10 days, can linger for couple of weeks. It is very important to treat your symptoms. Drink plenty of water, Gatorade, Pedialyte, ice pops or Jell-O. -Alternate Tylenol and Motrin per package directions for fever or pain. You can alternate every 4 hours -Antihistamine medication such as Zyrtec/Claritin/Gracie during the day can help improve symptoms. -doing daily nasal irrigations can help relieve pressure your sinuses. Things like a Neti pot -Use Flonase twice a day for 5 days then daily to help reduce the inflammation and dry up your sinuses. -You can also use Mucinex. Be sure to drink plenty of water with this medication at least 8 ounces with every dose and it is important to drink 8 to 10 glasses of water per day. Water is a natural decongestant -Eat and drink things that are easy to swallow, like tea or soup, or popsicles. -Oral rinses such as: Salt water gargles and/or may use topical anesthetic (eg. Chloraseptic spray) or lozenges to relieve dryness or throat pain). -Frequent hand washing or hand sports cartoonist is one of the best ways to prevent spread of infection. -Using a vaporizer or humidifier at night will also help thin secretions and help with coughing up phlegm. -Follow up with primary care provider in 7-10 days if condition is not improving - For new or worsening symptoms go directly to the nearest ER Patient Language: Eritrean Prescriptions: No Action cholecalciferol (vitamin D3) 25 mcg (1,000 unit) capsule 25 mcg PO DAILY tizanidine 2 mg tablet 2 mg PO TID PRN (Reason: muscle spasticity) Qty: 20 0RF nortriptyline 25 mg capsule See Rx Instructions PO QHS Qty: 60 5RF Patient Comments: .. Rx Instructions: 1-2 orally every day at bedtime; pantoprazole [Protonix] 40 mg tablet,delayed release (DR/EC) 40 mg PO QAM Qty: 90 0RF lorazepam 1 mg tablet 1 mg PO TID PRN (Reason: anxiety) Qty: 60 0RF rosuvastatin 20 mg tablet See Rx Instructions .ROUTE .COMPLEX Qty: 90 1RF Dose Instruction: TAKE 1 TABLET BY MOUTH EVERY DAY Rx Instructions: TAKE 1 TABLET BY MOUTH EVERY DAY olmesartan 20 mg tablet See Rx Instructions .ROUTE .COMPLEX Qty: 90 1RF Dose Instruction: TAKE 1 TABLET BY MOUTH DAILY Rx Instructions: TAKE 1 TABLET BY MOUTH DAILY Follow-up/Referrals: UNKNOWN,DOCTOR [Non-Staff] Stand Alone Forms: Work/School Release IP Time of Disposition: 11:02
[2025-05-22 10:44] VITALS: BP 146/101; PULSE 85; RESP 16; TEMP 36.4; O2SAT 99
[2025-05-22 11:09] LABS: EDCOVIDSCREEN Positive (Negative); EDINFLUASCREEN Negative (Negative); EDINFLUBSCREEN Negative (Negative)
== END 2025-05-22 11:10 | disposition home or self-care (01) ==
PROVIDERS: Emergency Provider Nurse Practitioner; PCP Family Medicine
DX: U07.1 COVID-19 (principal); I10 Essential (primary) hypertension; F41.9 Anxiety disorder, unspecified; Z87.891 Personal history of nicotine dependence
CPT/HCPCS: 87426; 87804; 99212; G0463